=== PATIENT | female | born 1950 | race Caucasian/White ===

== ENCOUNTER 2017-01-29 00:02 | Emergency (ER) | payer OTHER ==
[~2017-01-29] VITALS: Ht 162.6 cm; Wt 68.0 kg
[~2017-01-29 00:02] MED LIST: EVISTA60 MG ORAL
[2017-01-29 00:05] VITALS: BP 117/58
--- NOTE | 2017-01-29 00:25 | Emergency Room Report ---
History of Present Illness General Chief Complaint: Generalized Weakness Source: Patient Present Illness HPI This is a 66-year-old female with no significant past medical history. She presents with generalize weakness and Near syncope. She scheduled for colonoscopy tomorrow. She been taking GoLYTELY. She been having profuse diarrhea. She got up tonight and they'll because of her generalize weakness. No head injury. Said she did not pass out. Never had this problem before. No chest pain. No nausea no vomiting. Allergies: Coded Allergies: No Known Allergies (Unverified , 01/28/17) Patient History Past Medical History: see triage record, old chart reviewed Past Surgical History: other Pertinent Family History: none Social History: Denies: smoking Last Menstrual Period: na Now: No Immunizations: other Reviewed Nursing Documentation: PMH: Agreed, PSxH: Agreed Nursing Documentation-PMH Past Medical History: No Stated History Review of Systems Constitutional: Reports: weakness Eye: Denies: eye pain, blurred vision ENT: Denies: ear pain, nose congestion, throat swelling Respiratory: Denies: cough, shortness of breath Cardiovascular: Denies: chest pain, palpitations Gastrointestinal: Denies: abdominal pain, diarrhea, nausea, vomiting Musculoskeletal: Denies: back pain, joint pain Skin: Denies: rash Neurological: Denies: headache, numbness Endocrine: Denies: increased thirst, increased urine Hematologic/Lymphatic: Denies: easy bruising All Other Systems: negative except mentioned in HPI Physical Exam Vital Signs Date Time Temp Pulse Resp B/P (MAP) Pulse Ox O2 Delivery O2 Flow Rate FiO2 01/28/17 23:49 97.9 68 16 109/63 98 Room Air vitals normal Sp02 EP Interpretation: reviewed, normal General Appearance: alert, thin Head: normocephalic, atraumatic Eyes: bilateral eye PERRL, bilateral eye EOMI ENT: hearing grossly normal, normal pharynx Neck: full range of motion, supple, no meningismus Respiratory: chest non-tender, lungs clear, normal breath sounds Cardiovascular #1: regular rate, rhythm, no murmur Gastrointestinal: normal bowel sounds, non tender, no mass, no organomegaly, no bruit, non-distended Musculoskeletal: back normal, gait/station normal, normal range of motion Psychiatric: mood/affect normal Skin: warm/dry Medical Decision Making Diagnostic Impression: Primary Impression: Episode of generalized weakness Additional Impression: Syncope and collapse ER Course Patient presents with syncope and weakness. This probably secondary to dehydration and volume depletion from GoLYTELY. She fell better now. We'll discharge home. no evidence of ACS, PE, dissection. No infectious cause. Lab Results Impression labs unremarkable EKG Diagnostic Results Rate: normal Rhythm: NSR ST Segments: no acute changes Rhythm Strip Diag. Results Rhythm Strip Time: 00:42 EP Interpretation: yes Rate: 59 Rhythm: NSR, no PVC's, no ectopy Chest X-Ray Diagnostic Results Chest X-Ray Diagnostic Results : Chest X-Ray Ordered: Yes Indication: Shortness of Breath EP Interpretation: Yes Interpretation: no consolidation, no effusion, no pneumothorax Impression: No acute disease Electronically Signed by: Electronically signed by Alan Lemons MD Last Vital Signs Date Time Temp Pulse Resp B/P (MAP) Pulse Ox O2 Delivery O2 Flow Rate FiO2 01/28/17 23:49 97.9 68 16 109/63 98 Room Air Status: improved Disposition: HOME, SELF-CARE Condition: Stable Patient Instructions: Near-Syncope, [id number] Additional Instructions: Increase fluids. Followup with your DrVilma in 2-3 days. You may still go for colonoscopy. Return if worse. ALAN LEMONS M.D. Jan 29, 2017 00:25
[2017-01-29 00:58] LABS: BASOPHILS % (AUTO) 1.3 % (0.0-2.0); EOSINOPHILS % (AUTO) 2.5 % (0.0-3.0); LYMPHOCYTES % (AUTO) 30.8 % (20.0-45.0); MEAN CORPUSCULAR HEMOGLOBIN 33.6 PG (27.0-31.0); MEAN CORPUSCULAR VOLUME 99 FL (80-99); MEAN PLATELET VOLUME 5.5 FL (6.5-10.1); MONOCYTES % (AUTO) 6.1 % (1.0-10.0); NEUTROPHILS % (AUTO) 59.3 % (45.0-75.0); PLATELET COUNT 228 K/UL (150-450); RED BLOOD COUNT 4.16 M/UL (4.20-5.40); RED CELL DISTRIBUTION WIDTH 11.5 % (11.6-14.8)
[2017-01-29 01:12] LABS: ALANINE AMINOTRANSFERASE 12 U/L (3-33); ANION GAP 13 (5-15); ASPARTATE AMINO TRANSFERASE 29 U/L (5-40); CALCIUM 8.7 mg/dL (8.6-10.2); CARBON DIOXIDE 23 mEQ/L (20-30); CHLORIDE 101 mEQ/L (98-107); CREATININE 0.8 mg/dL (0.5-0.9); GLOMERULAR FILTRATION RATE > 60 mL/min (>60); HEMOLYSIS 196; MAGNESIUM 2.1 mg/dL (1.7-2.5); SODIUM 137 mEQ/L (135-145); TOTAL PROTEIN 7.3 g/dL (6.6-8.7)
[2017-01-29 01:15] LABS: TROPONIN I < 0.30 ng/mL (<=0.30)
[2017-01-29 01:23] LABS: CKMB 1.7 ng/mL (< 3.8)
[2017-01-29 01:40] VITALS: BP 125/75
[2017-01-29 01:45] VITALS: BP 125/75
--- NOTE | 2017-01-29 11:22 | Diagnostic Imaging Report ---
Indication: Dyspnea Comparison: None A single view chest radiograph was obtained. Findings: Lungs are hyperexpanded. The bones are osteopenic. Aorta is ectatic. Heart size is borderline enlarged. Impression: No acute disease
--- NOTE | 2017-01-29 17:58 | Cardiology Report ---
APPROVED REPORT EKG Measurement Heart [id number] Normal sinus rhythm Possible Left atrial enlargement Borderline ECG
== END 2017-01-29 02:54 | disposition home or self-care (01) ==
LOC: EDBD 00:02 → EMR 02:54 → EDBD 02:54
DX: R53.1 Weakness (principal); R55 Syncope and collapse
CPT/HCPCS: 36415; 71010; 80053; 82550; 82553; 83735; 84484; 85025; 93005; 96360; 99284